=== PATIENT | male | born 1965 ===

== ENCOUNTER 2018-12-14 20:27 | Inpatient (IN) | payer SELFPAY ==
--- NOTE | 2018-12-14 21:30 | C.PDOC ---
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 Patient states today he awoke with massive swelling of the right arm. He arrived to the ER with a fever of 101. Patient reports having some mild cold symptoms but otherwise nothing significant and no other complaints. Time Seen by Provider: 12/14/18 21:22 Chief Complaint (Nursing): Abnormal Skin Integrity History Per: Patient History/Exam Limitations: no limitations Onset/Duration Of Symptoms: Days Current Symptoms Are (Timing): Worse Location Of Injury: Left: Forearm Quality Of Symptoms: Swollen, Other (Erythema) Recent travel outside of the [place]: No Past Medical History Reviewed: Historical Data, Nursing Documentation, Vital Signs Vital Signs: Last Vital Signs Temp 101 F H 12/14/18 20:47 Pulse 100 H 12/14/18 20:35 Resp 20 12/14/18 20:35 BP 131/72 12/14/18 20:35 Pulse Ox 92 L 12/14/18 20:35 Family History: States: No Known Family Hx - Social History Hx Alcohol Use: No Hx Substance Use: Yes - Immunization History Hx Tetanus Toxoid Vaccination: No Hx Influenza Vaccination: No Hx Pneumococcal Vaccination: No Review Of Systems Constitutional: Positive for: Fever. Negative for: Chills Cardiovascular: Negative for: Chest Pain, Palpitations Respiratory: Negative for: Cough, Shortness of Breath Gastrointestinal: Negative for: Nausea, Vomiting Skin: Positive for: Other (Left arm swelling and erythema) Neurological: Negative for: Weakness, Numbness Physical Exam - Physical Exam Appears: Non-toxic Skin: Warm, Dry Head: Atraumatic, Normacephalic Eye(s): bilateral: Normal Inspection Oral Mucosa: Moist Chest: Symmetrical, No Tenderness Cardiovascular: Rhythm Regular Respiratory: Normal Breath Sounds, No Rales, No Rhonchi, No Wheezing Gastrointestinal/Abdominal: Soft, No Tenderness Extremity: Normal ROM (x4), Capillary Refill (<2 seconds), Other (Swelling and erythema to left forearm from antecubital fossa to wrist with 2 large loculated abscess) Pulses: Left Radial: Normal, Right Radial: Normal Neurological/Psych: Oriented x3, Normal Speech ED Course And Treatment - Laboratory Results Result Diagrams: 12/14/18 22:10 12/14/18 22:10 Lab Interpretation: Abnormal (WBC 15.1) O2 Sat by Pulse Oximetry: 92 (Room air) Progress Note: Blood work and urinalysis ordered. Tylenol administered. - Physician Consult Information Outcome Of Conversation: Patient to be admitted for I&D of abscess and treatment with IV antibiotics. Disposition - Disposition Disposition: HOSPITALIZED Disposition Time: 23:25 Condition: STABLE - POA Present On Arrival: None - Clinical Impression Clinical Impression: Cutaneous abscess of right upper extremity - Scribe Statement The provider has reviewed the documentation as recorded by the Scribnani Ty All medical record entries made by the Pepeibnani were at my direction and personally dictated by me. I have reviewed the chart and agree that the record accurately reflects my personal performance of the history, physical exam, medical decision making, and the department course for this patient. I have also personally directed, reviewed, and agree with the discharge instructions and disposition.
[2018-12-14 22:16] LABS: BASO # 0.2 K/uL (0.0-0.2); BASO % 1.1 % (0.0-2.0); EOS % 0.2 % (0.0-4.0); HEMOGLOBIN 10.7 g/dL (12.0-18.0); LYMPH # 0.7 K/uL (1.0-4.3); LYMPH % 4.7 % (20.0-40.0); MEAN CELL VOLUME 85.8 fL (80.0-94.0); MEAN CORPUSCULAR HEMOGLOBIN 28.4 pg (27.0-31.0); MEAN CORPUSCULAR HGB CONC 33.1 g/dL (33.0-37.0); MEAN PLATELET VOLUME 7.2 fL (7.2-11.7); MONO # 0.8 K/uL (0.0-0.8); MONO % 5.2 % (0.0-10.0); NEUT # 13.4 K/uL (1.8-7.0); NEUT % 88.8 % (50.0-75.0); PLATELET COUNT 359 K/uL (130-400); RBC 3.76 Mil/uL (4.40-5.90); RED CELL DISTRIBUTION WIDTH 14.2 % (11.5-14.5); WHITE BLOOD COUNT 15.1 K/uL (4.8-10.8)
[2018-12-14 22:18] LABS: URINE BILIRUBIN 1+ (NEGATIVE); URINE BLOOD 1+ (NEGATIVE); URINE CLARITY Clear (Clear); URINE COLOR Amber (YELLOW); URINE GLUCOSE (UA) NORMAL (Normal); URINE LEUKOCYTE ESTERASE NEG Leu/uL (Negative); URINE PROTEIN 2+ mg/dL (NEGATIVE)
[2018-12-14 22:24] LABS: INR 1.6
[2018-12-14 22:27] LABS: ALBUMIN 3.7 g/dL (3.5-5.0); AST/SGOT 21 U/L (17-59); BLOOD UREA NITROGEN 12 mg/dL (9-20); CALCIUM 8.3 mg/dl (8.6-10.4); GFR NON-AFRICAN AMERICAN > 60
[2018-12-14 22:32] LABS: ALT/SGPT < 6 U/L (21-72)
[2018-12-14 22:38] LABS: BARBITURATES, UR NEGATIVE (NEGATIVE); BENZODIAZEPINES, UR NEGATIVE (NEGATIVE); PHENCYCLIDINE, UR NEGATIVE (NEGATIVE)
[2018-12-14 22:42] LABS: OPIATES, UR POSITIVE (NEGATIVE)
[2018-12-14 23:23] LABS: LYMPHOCYTE 3 % (20-40); MONOCYTE 1 % (0-10); NEUTROPHIL 96 % (50-75); PLATELET ESTIMATE NORMAL (NORMAL); TOTAL CELLS COUNTED 100
[2018-12-15] MEDS ORDERED: Lactated Ringer's 2,000 ML IV ONE (00:04)
[2018-12-15] MEDS ORDERED: Vancomycin 1 gm/NS 200 ml 1 GM/200 ML BAG IVPB STA (00:04)
[2018-12-15] MEDS ORDERED: HYDROmorphone 1 mg/ml ISec IVP PRN (00:04)
[2018-12-15] MEDS ORDERED: Phytonadione 10 mg/ml Inj (Adult) IV STA (00:08)
--- NOTE | 2018-12-15 00:13 | CP.PCM.HP ---
History of Present Illness - History of Present Illness History of Present Illness: HISTORY AND PHYSICAL, SURGERY. 53M IVDA patient presents with left arm pain and swelling that began couple of days ago. Patient states the pain is worse and swelling was increasing in the arm. He has a history of abscesses that have been drained in the operating room. He had admits to fevers. He denies any loss of sensation in the arm. Denies any motor dysfunction. PMH: IVDA PSH: I&Ds of abscesses Social: denies tobacco and alcohol abuse, admits to heroin abuse Allergies: NKDA Present on Admission - Present on Admission Any Indicators Present on Admission: No Past Patient History - Past Social History Smoking Status: Never Smoked - PSYCHIATRIC Hx Substance Use: Yes - SURGICAL HISTORY Hx Surgeries: No Meds Allergies/Adverse Reactions: Allergies Allergy/AdvReac Type Severity Reaction Status Date / Time No Known Allergies Allergy Verified 12/14/18 20:38 Physical Exam - Constitutional Appears: Non-toxic, No Acute Distress, Unkempt - Eye Exam Eye Exam: EOMI, PERRL - ENT Exam ENT Exam: Mucous Membranes Moist - Respiratory Exam Respiratory Exam: Clear to Auscultation Bilateral, NORMAL BREATHING PATTERN - Cardiovascular Exam Cardiovascular Exam: REGULAR RHYTHM, +S1, +S2 - GI/Abdominal Exam GI & Abdominal Exam: Soft. absent: Distended, Firm, Guarding, Rebound, Rigid, Tenderness - Extremities Exam Extremities exam: Positive for: pedal edema. Negative for: tenderness Additional comments: Left forearm swelling, erythema, induration, pitting edema, tenderness on palpation. multiple areas of fluctuance, no active drainage - Neurological Exam Neurological exam: Alert, Oriented x3 - Psychiatric Exam Psychiatric exam: Normal Affect, Normal Mood - Skin Skin Exam: Dry, Intact, Normal Color, Warm Results - Vital Signs Recent Vital Signs: Last Vital Signs Temp 101 F H 12/14/18 20:47 Pulse 100 H 12/14/18 20:35 Resp 20 12/14/18 20:35 BP 131/72 12/14/18 20:35 Pulse Ox 92 L 12/14/18 23:54 - Labs Result Diagrams: 12/14/18 22:10 12/14/18 22:10 Labs: Laboratory Results - last 24 hr 12/14/18 12/14/18 12/14/18 22:10 22:10 22:10 WBC 15.1 H RBC 3.76 L Hgb 10.7 L Hct 32.3 L MCV 85.8 MCH 28.4 MCHC 33.1 RDW 14.2 Plt Count 359 MPV 7.2 Neut % (Auto) 88.8 H Lymph % (Auto) 4.7 L [place] % (Auto) 5.2 Eos % (Auto) 0.2 Baso % (Auto) 1.1 Neut # (Auto) 13.4 H Lymph # (Auto) 0.7 L [place] # (Auto) 0.8 Eos # (Auto) 0.0 Baso # (Auto) 0.2 Neutrophils % (Manual) 96 H Lymphocytes % (Manual) 3 L Monocytes % (Manual) 1 Platelet Estimate Normal PT 17.0 H INR 1.6 APTT 23 Sodium Potassium Chloride Carbon Dioxide Anion Gap BUN Creatinine Est GFR ( Amer) Est GFR (Non-Af Amer) Random Glucose Calcium Total Bilirubin AST ALT Alkaline Phosphatase Total Protein Albumin Globulin Albumin/Globulin Ratio Urine Color [place] Urine Clarity Clear Urine pH 6.0 Ur Specific [place] 1.030 Urine Protein 2+ H Urine Glucose (UA) Normal Urine Ketones Negative Urine Blood 1+ H Urine Nitrate Negative Urine Bilirubin 1+ H Urine Urobilinogen 4.0 Ur Leukocyte Esterase Neg Urine WBC (Auto) 3 Urine RBC (Auto) 28 H Urine Opiates Screen Urine Methadone Screen Ur Barbiturates Screen Ur Phencyclidine Scrn Ur Amphetamines Screen U Benzodiazepines Scrn U Oth Cocaine Metabols U Cannabinoids Screen 12/14/18 12/14/18 22:10 22:10 WBC RBC Hgb Hct MCV MCH MCHC RDW Plt Count MPV Neut % (Auto) Lymph % (Auto) [place] % (Auto) Eos % (Auto) Baso % (Auto) Neut # (Auto) Lymph # (Auto) [place] # (Auto) Eos # (Auto) Baso # (Auto) Neutrophils % (Manual) Lymphocytes % (Manual) Monocytes % (Manual) Platelet Estimate PT INR APTT Sodium 132 Potassium 4.3 Chloride 95 L Carbon Dioxide 28 Anion Gap 13 BUN 12 Creatinine 0.7 L Est GFR ( Amer) > 60 Est GFR (Non-Af Amer) > 60 Random Glucose 121 H Calcium 8.3 L Total Bilirubin 0.6 AST 21 ALT < 6 L Alkaline Phosphatase 61 Total Protein 7.4 Albumin 3.7 Globulin 3.7 Albumin/Globulin Ratio 1.0 Urine Color Urine Clarity Urine pH Ur Specific [place] Urine Protein Urine Glucose (UA) Urine Ketones Urine Blood Urine Nitrate Urine Bilirubin Urine Urobilinogen Ur Leukocyte Esterase Urine WBC (Auto) Urine RBC (Auto) Urine Opiates Screen Positive H Urine Methadone Screen Negative Ur Barbiturates Screen Negative Ur Phencyclidine Scrn Negative Ur Amphetamines Screen Negative U Benzodiazepines Scrn Negative U Oth Cocaine Metabols Negative U Cannabinoids Screen Negative Assessment & Plan - Assessment and Plan (Free Text) Assessment: 53M presents with left forearm abscess Plan: NPO IVF Vit K Pain control Antibiotics Forearm x-ray Plan for OR in AM Discussed with Dr. Sun Saeed, PGY3
[2018-12-15] MEDS ORDERED: Piperacillin/Tazobact 3.375 gm 100 ML IVPB ONE (00:22)
[2018-12-15] MEDS: Piperacill/Tazo 3.375gm in Dex 3.375 GM/50 ML BAG IVPB SCH ×4 (00:35→19:09)
[2018-12-15] MEDS ORDERED: Vancomycin 1 GM 1 GM/250 ML BAG IVPB ONE (00:56)
[2018-12-15] MEDS ORDERED: Lactated Ringer's 1,000 ML ONE ×2 (01:47→03:01)
[2018-12-15] MEDS: Lactated Ringer's 1,000 ML IV SCH ×2 (03:55→07:09)
[2018-12-15 04:41] LABS: BASO % 0.5 % (0.0-2.0); EOS # 0.1 K/uL (0.0-0.7); EOS % 0.9 % (0.0-4.0); LYMPH # 1.2 K/uL (1.0-4.3); LYMPH % 11.9 % (20.0-40.0); MEAN CELL VOLUME 86.7 fL (80.0-94.0); MEAN CORPUSCULAR HEMOGLOBIN 28.7 pg (27.0-31.0); MEAN CORPUSCULAR HGB CONC 33.1 g/dL (33.0-37.0); MONO # 0.7 K/uL (0.0-0.8); MONO % 6.7 % (0.0-10.0); NEUT # 8.2 K/uL (1.8-7.0); RBC 3.84 Mil/uL (4.40-5.90); RED CELL DISTRIBUTION WIDTH 14.3 % (11.5-14.5); WHITE BLOOD COUNT 10.2 K/uL (4.8-10.8)
[2018-12-15 04:51] LABS: BLOOD UREA NITROGEN 10 mg/dL (9-20); CALCIUM 8.1 mg/dl (8.6-10.4); GFR NON-AFRICAN AMERICAN > 60
--- NOTE | 2018-12-15 09:01 | RAD ---
Date of service: 12/15/2018 PROCEDURE: Radiographs of the Left Forearm HISTORY: abscess COMPARISON: None available. TECHNIQUE: Frontal and lateral views obtained. FINDINGS: BONES: No fracture or destructive lesion.. No periosteal reaction or cortical destruction seen. JOINT SPACES: Unremarkable. OTHER FINDINGS: There is extensive subcutaneous reticulated edema and extensive bulging soft tissue prominence along the radial and volar aspect of the proximal forearm. Findings are compatible with the clinical history provided of an abscess. No radiopaque foreign body is seen here. No gross gas-forming cellulitis appreciated. IMPRESSION: Extensive soft tissue swelling with edema-findings compatible with a abscess-provided clinically. No periosteal reaction to suggest osteomyelitis noted. No gross osseous destruction appreciated . .
[2018-12-15] MEDS ORDERED: Midazolam 2 MG/2 ML VIAL ONE (10:55)
[2018-12-15] MEDS ORDERED: Propofol 10 mg/ml Inj (20 ML) ONE ×3 (10:55→11:18)
[2018-12-15] MEDS ORDERED: Bupivacaine-Epi 0.5%-1:200,000 PF Inj ONE (10:59)
[2018-12-15] MEDS ORDERED: Naloxone 0.4 mg/ml Inj (Adult) IVP PRN (11:38)
[2018-12-15] MEDS ORDERED: HYDROmorphone 0.5 mg/0.5 ml ISec IVP PRN (11:38)
--- NOTE | 2018-12-15 11:43 | PCM.SURG1 ---
Surgeon's Initial Post Op Note - Surgeon's Notes Surgeon: Dr. Garsia Silo Erector: Dr. Estrada PGY-3 Type of Anesthesia: General LMA Pre-Operative Diagnosis: L forearm abscess Operative Findings: See operative report Post-Operative Diagnosis: Same Operation Performed: Incision & Drainage of left forearm abscessess Specimen/Specimens Removed: none Estimated Blood Loss: EBL {In ML}: 50 Blood Products Given: N/A Drains Used: [place] Post-Op Condition: Good Date of Surgery/Procedure: 12/15/18 Time of Surgery/Procedure: 11:43
[2018-12-15 16:19] VITALS: RESP 20
[2018-12-15] MEDS ORDERED: SUBOXONE 8 MG SL SCH (18:00)
[2018-12-15] MEDS: Buprenorphine Hydrochloride 8 mg SL SCH (19:59)
[2018-12-16] MEDS: Piperacill/Tazo 3.375gm in Dex 3.375 GM/50 ML BAG IVPB SCH ×3 (00:15→18:06)
[2018-12-16 07:12] LABS: BASO # 0.1 K/uL (0.0-0.2); BASO % 0.5 % (0.0-2.0); EOS % 0.1 % (0.0-4.0); HEMOGLOBIN 11.5 g/dL (12.0-18.0); LYMPH % 9.1 % (20.0-40.0); MEAN CELL VOLUME 85.8 fL (80.0-94.0); MEAN CORPUSCULAR HEMOGLOBIN 28.6 pg (27.0-31.0); MEAN CORPUSCULAR HGB CONC 33.3 g/dL (33.0-37.0); MEAN PLATELET VOLUME 7.4 fL (7.2-11.7); MONO # 0.5 K/uL (0.0-0.8); MONO % 4.8 % (0.0-10.0); NEUT # 9.5 K/uL (1.8-7.0); NEUT % 85.5 % (50.0-75.0); RBC 4.02 Mil/uL (4.40-5.90); RED CELL DISTRIBUTION WIDTH 13.9 % (11.5-14.5); WHITE BLOOD COUNT 11.1 K/uL (4.8-10.8)
[2018-12-16 07:32] LABS: PLATELET COUNT 393 K/uL (130-400)
[2018-12-16 09:33] LABS: ANISOCYTOSIS SLIGHT; EOSINOPHIL 1 % (0-4); LYMPHOCYTE 10 % (20-40); MONOCYTE 6 % (0-10); NEUTROPHIL 83 % (50-75); PLATELET ESTIMATE NORMAL (NORMAL); POIKILOCYTOSIS SLIGHT; TOTAL CELLS COUNTED 100
[2018-12-16 09:34] LABS: HYPOCHROMIC SLIGHT
--- NOTE | 2018-12-16 09:48 | CP.PCM.PN ---
Subjective - Date & Time of Evaluation Date of Evaluation: 12/16/18 Time of Evaluation: 07:00 - Subjective Subjective: Surgery: Dr. Garsia Pt seen and examined. Overnight pt lost IV access and nurses were unable to establish new access. Pt denies any complaints this morning. Denies fevers/chills. Objective - Vital Signs/Intake and Output Vital Signs (last 24 hours): Temp Pulse Resp BP Pulse Ox 98.6 F 63 20 162/85 H 95 12/16/18 08:00 12/16/18 08:00 12/16/18 08:00 12/16/18 08:00 12/16/18 08:00 Intake and Output: 12/16/18 12/16/18 06:59 18:59 Intake Total 300 240 Balance 300 240 - Medications Medications: Current Medications Buprenorphine HCl (Subutex) 8 mg SL TID [facility] Last Admin: 12/15/18 19:59 Dose: 8 mg Influenza Virus Vaccine (Flucelvax Quad [id number] Syr) 60 mcg IM .ONCE ONE Stop: 12/17/18 10:01 Ketorolac Tromethamine (Toradol) 30 mg IVP Q6 PRN PRN Reason: Pain, severe (8-10) Last Admin: 12/15/18 13:17 Dose: 30 mg Pneumococcal Polyvalent Vaccine (Pneumovax 23 Vaccine) 0.5 ml IM .ONCE ONE Stop: 12/17/18 10:01 - Labs Labs: 12/16/18 07:00 12/15/18 04:35 PT 17.0 SECONDS (9.7-12.2) H 12/14/18 22:10 INR 1.6 12/14/18 22:10 APTT 23 SECONDS (21-34) 12/14/18 22:10 - Constitutional Appears: Well, No Acute Distress - Head Exam Head Exam: ATRAUMATIC, NORMOCEPHALIC - Eye Exam Eye Exam: Normal appearance - ENT Exam ENT Exam: Mucous Membranes Moist - Respiratory Exam Respiratory Exam: NORMAL BREATHING PATTERN - Cardiovascular Exam Cardiovascular Exam: RRR - Extremities Exam Additional comments: L arm with dressing; C/D/I - Neurological Exam Neurological Exam: Alert, Awake, Oriented x3 - Skin Skin Exam: Dry, Warm Assessment and Plan - Assessment and Plan (Free Text) Assessment: 53M with L forearm abscess secondary to IVDA; s/p I&D, POD#1 Plan: - will request midline with vascular nurse or insert central line for IV ABX - cont IV ABX - f/u Cx - change dressing tomorrow - d/w Dr. Sun Estrada
[2018-12-16] MEDS: Buprenorphine Hydrochloride 8 mg SL SCH ×3 (10:22→18:05)
--- NOTE | 2018-12-16 11:03 | PCM.PROC ---
Procedures Attestation:: I certify that I have explained the specified Operation(s) or Procedure(s), risks, benefits and reasonable alternatives to the Patient and/or other person responsible. The opportunity was given to ask questions and all questions answered - Central Line Placement Right Internal Jugular Aseptic technique was employed throughout the procedure: Hand Hygiene done prior to procedure, Full sterile barriers (mask, hair cover, sterile gown, sterile gloves), Full body sterile drape, Chloraprep Antiseptic: 30 second prep for IJ or SC sites CVP Time Out Performed: Yes Central Line Prep: Chlorhexidine-Alcohol Combination Local Anesthesia Used: Lidocaine 1% Amount of Anesthesia Used (mls): 10 Ultrasound Used for Placement: Yes Central Line Lumen Inserted: triple Central Line Length: 20 cm Post Procedure: Sutured in Place, Good Blood Return, All Ports Aspirated, Flushe d, Capped, Sterile Dressing Applied Secured by: Suture Post procedure dressing: Clear vapor permeable, Chlorhexidine disc (Biopatch) Post Procedure X-Ray: Yes Patient Tolerated Procedure: Well Immediate Complications: None
--- NOTE | 2018-12-16 11:37 | RAD ---
Date of service: 12/16/2018 HISTORY: central line placement COMPARISON: No prior. FINDINGS: The right IJV line terminates in the SVC. LUNGS: The lungs are well inflated. There is discoid atelectasis in the right mid lung. The left lung is clear. PLEURA: No pleural effusions or pneumothorax. CARDIOVASCULAR: The heart is normal in size. No aortic atherosclerotic calcifications present. OSSEOUS STRUCTURES: Within normal limits for the patient's age. VISUALIZED UPPER ABDOMEN: Normal. OTHER FINDINGS: None. IMPRESSION: Right IJV line terminates in the SVC. Discoid atelectasis in the right mid lung.
[2018-12-16] MEDS: Vancomycin 1 gm/NS 200 ml 1 GM/200 ML BAG IVPB SCH (13:35)
[2018-12-16] MEDS ORDERED: HYDROmorphone 0.5 mg/0.5 ml ISec IVP PRN (15:04)
[2018-12-17] MEDS: Piperacill/Tazo 3.375gm in Dex 3.375 GM/50 ML BAG IVPB SCH ×5 (00:25→23:52)
[2018-12-17] MEDS: Vancomycin 1 gm/NS 200 ml 1 GM/200 ML BAG IVPB SCH ×2 (01:03→14:18)
[2018-12-17 07:21] LABS: HEMOGLOBIN 11.9 g/dL (12.0-18.0); MEAN CELL VOLUME 85.8 fL (80.0-94.0); MEAN CORPUSCULAR HEMOGLOBIN 29.2 pg (27.0-31.0); MEAN CORPUSCULAR HGB CONC 34.1 g/dL (33.0-37.0); MEAN PLATELET VOLUME 7.3 fL (7.2-11.7); RBC 4.08 Mil/uL (4.40-5.90); RED CELL DISTRIBUTION WIDTH 14.1 % (11.5-14.5); WHITE BLOOD COUNT 8.6 K/uL (4.8-10.8)
[2018-12-17] MEDS ORDERED: Influenza Vaccine 60 mcg/0.5 mL SYR (4YR UP) IM ONE (10:00)
[2018-12-17] MEDS ORDERED: Pneumococcal 23-Valent Vaccine IM ONE (10:00)
[2018-12-17] MEDS: Buprenorphine Hydrochloride 8 mg SL SCH ×3 (10:18→18:49)
--- NOTE | 2018-12-17 20:03 | CP.PCM.PN ---
Subjective - Date & Time of Evaluation Date of Evaluation: 12/17/18 Time of Evaluation: 14:45 - Subjective Subjective: general surgery progress note for Dr. Garsia PAtient seen and examined at bedside. patient has no complaints at this time states dressing was changed by nursing earlier today d/t movement/coming off. Packing changed at bedside sita drains still in place. Patient tolerated well. no purulent fluid expressed from wound. iodine soaked kerlex used to repack medial opening without sita drain inside. patient otherwise states he has not numbness or motor weakness of the left arm and his pain is well controlled. he denies COLEMAN, CP SOB, abdominal pain stool changes and lower extremity pain/weakness. Objective - Vital Signs/Intake and Output Vital Signs (last 24 hours): Temp Pulse Resp BP Pulse Ox 98.1 F 52 L 20 122/72 94 L 12/17/18 16:00 12/17/18 16:00 12/17/18 16:00 12/17/18 16:00 12/17/18 16:00 Intake and Output: 12/17/18 12/18/18 18:59 06:59 Intake Total 550 Balance 550 - Medications Medications: Current Medications Buprenorphine HCl (Subutex) 8 mg SL TID [facility] Last Admin: 12/17/18 18:49 Dose: 8 mg Hydromorphone HCl (Dilaudid) 0.5 mg IVP Q6H PRN PRN Reason: Pain, severe (8-10) Stop: 12/18/18 15:05 Piperacillin Sod/Tazobactam Sod (Zosyn 3.375 Gm Iv Premix) 3.375 gm in 50 mls @ 100 mls/hr IVPB Q6H [facility]; Protocol Last Admin: 12/17/18 18:45 Dose: 100 mls/hr Vancomycin/Sodium Chloride (Vancomycin 1 Gm/Ns 200 Ml) 1 gm in 200 mls @ 13 3.333 mls/hr IVPB Q12H [facility]; Protocol Stop: 12/21/18 14:01 Last Admin: 12/17/18 14:18 Dose: 133.333 mls/hr Ketorolac Tromethamine (Toradol) 30 mg IVP Q6 PRN PRN Reason: Pain, severe (8-10) Last Admin: 12/15/18 13:17 Dose: 30 mg - Labs Labs: 12/17/18 07:02 02/07/19 04:35 PT 17.0 SECONDS (9.7-12.2) H 12/14/18 22:10 INR 1.6 12/14/18 22:10 APTT 23 SECONDS (21-34) 12/14/18 22:10 - Constitutional Appears: Well, Non-toxic, No Acute Distress - Head Exam Head Exam: ATRAUMATIC, NORMOCEPHALIC - Eye Exam Eye Exam: EOMI - ENT Exam ENT Exam: Mucous Membranes Moist - Respiratory Exam Respiratory Exam: NORMAL BREATHING PATTERN - Cardiovascular Exam Cardiovascular Exam: REGULAR RHYTHM - GI/Abdominal Exam GI & Abdominal Exam: Soft. absent: Guarding, Tenderness - Back Exam Additional comments: left arm with 3 cm incisions x3 on the anterior aspect of the forearm just distal to the antecubital fossa. lateral two incisions are held open with p enrose drain sutured in and medial incision was repacked with iodine soaked kerlex. incisions appear clean withourt surrounding erythema or induration - Neurological Exam Neurological Exam: Alert, Awake, Oriented x3 - Psychiatric Exam Psychiatric exam: Normal Affect, Normal Mood - Skin Skin Exam: Dry, Normal Color, Warm Additional comments: see extremity exam Assessment and Plan - Assessment and Plan (Free Text) Assessment: 53M with L forearm abscess secondary to IVDA; s/p I&D, POD#2 Plan: - cx growing MRSA, continue with IV abx - f/u culture - packing changed today, sita in place, will change packing again tomorrow -discussed with Dr. Sun Garay, PGY 1
[2018-12-18] MEDS: Vancomycin 1 gm/NS 200 ml 1 GM/200 ML BAG IVPB SCH (01:00)
[2018-12-18] MEDS: Piperacill/Tazo 3.375gm in Dex 3.375 GM/50 ML BAG IVPB SCH (05:53)
--- NOTE | 2018-12-18 08:05 | CP.PCM.PN ---
Subjective - Date & Time of Evaluation Date of Evaluation: 12/18/18 Time of Evaluation: 08:02 - Subjective Subjective: SURGERY NOTE FOR DR. PAIGE 53M seen and examined at bedside. Patient denies pain, denies fevers, he is tolerating diet. Objective - Vital Signs/Intake and Output Vital Signs (last 24 hours): Temp Pulse Resp BP Pulse Ox 97.9 F 57 L 20 151/94 H 94 L 12/18/18 00:00 12/18/18 00:00 12/18/18 00:00 12/18/18 00:00 12/18/18 00:00 Intake and Output: 12/18/18 12/18/18 06:59 18:59 Intake Total 840 Balance 840 - Medications Medications: Current Medications Buprenorphine HCl (Subutex) 8 mg SL TID [facility] Last Admin: 12/17/18 18:49 Dose: 8 mg Hydromorphone HCl (Dilaudid) 0.5 mg IVP Q6H PRN PRN Reason: Pain, severe (8-10) Stop: 12/18/18 15:05 Piperacillin Sod/Tazobactam Sod (Zosyn 3.375 Gm Iv Premix) 3.375 gm in 50 mls @ 100 mls/hr IVPB Q6H [facility]; Protocol Last Admin: 12/18/18 05:53 Dose: 100 mls/hr Vancomycin/Sodium Chloride (Vancomycin 1 Gm/Ns 200 Ml) 1 gm in 200 mls @ 133.333 mls/hr IVPB Q12H [facility]; Protocol Stop: 12/21/18 14:01 Last Admin: 12/18/18 01:00 Dose: 133.333 mls/hr Ketorolac Tromethamine (Toradol) 30 mg IVP Q6 PRN PRN Reason: Pain, severe (8-10) Last Admin: 12/15/18 13:17 Dose: 30 mg - Labs Labs: 12/17/18 07:02 12/15/18 04:35 PT 17.0 SECONDS (9.7-12.2) H 12/14/18 22:10 INR 1.6 12/14/18 22:10 APTT 23 SECONDS (21-34) 12/14/18 22:10 - Constitutional Appears: Non-toxic, No Acute Distress - Respiratory Exam Respiratory Exam: Clear to Ausculation Bilateral, NORMAL BREATHING PATTERN - Cardiovascular Exam Cardiovascular Exam: REGULAR RHYTHM, +S1, +S2 - GI/Abdominal Exam GI & Abdominal Exam: Soft. absent: Distended, Firm, Guarding, Rigid, Tenderness, Rebound - Extremities Exam Additional comments: left forearm I&D area has packing and sita in place - Neurological Exam Neurological Exam: Alert, Awake Assessment and Plan - Assessment and Plan (Free Text) Assessment: 53M s/p I&D of left forearm abscess Plan: - readjust antibiotics for sensitivities - PO medications - Likely discharge Further recs discuss with Dr. Sun Saeed, PGY3
[2018-12-18] MEDS: Buprenorphine Hydrochloride 8 mg SL SCH ×3 (10:46→18:10)
[2018-12-18] MEDS: Clindamycin 300 MG in Sodium Chloride 0.9% 50 ML IVPB SCH ×2 (13:28→18:10)
[2018-12-19] MEDS: Clindamycin 300 MG in Sodium Chloride 0.9% 50 ML IVPB SCH ×4 (00:23→17:52)
--- NOTE | 2018-12-19 08:12 | CP.PCM.PN ---
Subjective - Date & Time of Evaluation Date of Evaluation: 12/19/18 Time of Evaluation: 07:00 - Subjective Subjective: Surgery progress note for Dr. Garsia. Patient seen and examined at bedside. POD# 4 s/p I&D of L forearm abscess. Patient in no acute distress. No fevers overnight. Tolerating heart healthy diet. Denies pain to L forearm. Objective - Vital Signs/Intake and Output Vital Signs (last 24 hours): Temp Pulse Resp BP Pulse Ox 98.3 F 85 20 146/81 97 12/19/18 07:47 12/19/18 07:47 12/19/18 07:47 12/19/18 07:47 12/19/18 07:47 Intake and Output: 12/19/18 12/19/18 06:59 18:59 Intake Total 400 Balance 400 - Medications Medications: Current Medications Buprenorphine HCl (Subutex) 8 mg SL TID [facility] Last Admin: 12/18/18 18:10 Dose: 8 mg Clindamycin Phosphate 300 mg/ (Sodium Chloride) 52 mls @ 100 mls/hr IVPB Q6H [facility]; Protocol Last Admin: 12/19/18 06:09 Dose: 100 mls/hr - Labs Labs: 12/17/18 07:02 12/15/18 04:35 PT 17.0 SECONDS (9.7-12.2) H 12/14/18 22:10 INR 1.6 12/14/18 22:10 APTT 23 SECONDS (21-34) 12/14/18 22:10 - Constitutional Appears: Non-toxic, No Acute Distress - Head Exam Head Exam: ATRAUMATIC, NORMOCEPHALIC - Eye Exam Eye Exam: EOMI, Normal appearance, PERRL - ENT Exam ENT Exam: Mucous Membranes Moist - Neck Exam Neck Exam: Full ROM, Normal Inspection - Respiratory Exam Respiratory Exam: NORMAL BREATHING PATTERN. absent: Accessory Muscle Use - GI/Abdominal Exam GI & Abdominal Exam: Soft. absent: Tenderness - Extremities Exam Extremities Exam: Full ROM - Neurological Exam Neurological Exam: Alert, Awake, Oriented x3 - Psychiatric Exam Psychiatric exam: Normal Affect, Normal Mood - Skin Skin Exam: Normal Color Additional comments: L forearm incision with packing and sita drain in place. Edema to area has diminished. No erythema or warmth. Assessment and Plan - Assessment and Plan (Free Text) Assessment: 53M POD#4 s/p I&D of left forearm abscess Plan: -continue antibiotics -continue sita drain -continue packing and dressing changes -f/u case managment Further recs discuss with Dr. Sun Will, PGY1
[2018-12-19] MEDS: Buprenorphine Hydrochloride 8 mg SL SCH ×3 (09:43→17:50)
[2018-12-20] MEDS: Clindamycin 300 MG in Sodium Chloride 0.9% 50 ML IVPB SCH ×4 (00:47→18:19)
[2018-12-20 07:21] LABS: HEMOGLOBIN 13.8 g/dL (12.0-18.0); MEAN CELL VOLUME 85.8 fL (80.0-94.0); MEAN CORPUSCULAR HEMOGLOBIN 29.6 pg (27.0-31.0); MEAN CORPUSCULAR HGB CONC 34.5 g/dL (33.0-37.0); RBC 4.68 Mil/uL (4.40-5.90); RED CELL DISTRIBUTION WIDTH 14.4 % (11.5-14.5); WHITE BLOOD COUNT 7.5 K/uL (4.8-10.8)
[2018-12-20 07:36] LABS: BLOOD UREA NITROGEN 9 mg/dL (9-20); GFR NON-AFRICAN AMERICAN > 60
--- NOTE | 2018-12-20 08:18 | CP.PCM.PN ---
Subjective - Date & Time of Evaluation Date of Evaluation: 12/20/18 Time of Evaluation: 06:50 - Subjective Subjective: Progress note for Dr. Garsia. Patient is POD#5 s/p I&D of L forearm abscess. Patient seen and examined at bedside. Patient in no acute distress, resting comfortably in bed. No acute events overnight. Afebrile. Tolerating diet. Denies pain to L forearm. Denies fever, chills, nausea, vomiting, pain, weakness, lightheadedness and dizzines. Objective - Vital Signs/Intake and Output Vital Signs (last 24 hours): Temp Pulse Resp BP Pulse Ox 97.9 F 73 20 127/77 94 L 12/20/18 00:00 12/20/18 00:00 12/20/18 00:00 12/20/18 00:00 12/20/18 00:00 - Medications Medications: Current Medications Buprenorphine HCl (Subutex) 8 mg SL TID [facility] Last Admin: 12/19/18 17:50 Dose: 8 mg Clindamycin Phosphate 300 mg/ (Sodium Chloride) 52 mls @ 100 mls/hr IVPB Q6H [facility]; Protocol Last Admin: 12/20/18 06:06 Dose: 100 mls/hr - Labs Labs: 12/20/18 07:15 12/20/18 07:15 PT 17.0 SECONDS (9.7-12.2) H 12/14/18 22:10 INR 1.6 12/14/18 22:10 APTT 23 SECONDS (21-34) 12/14/18 22:10 - Additional Findings Additional findings: - Constitutional Appears: Non-toxic, No Acute Distress - Head Exam Head Exam: ATRAUMATIC, NORMOCEPHALIC - Eye Exam Eye Exam: EOMI, Normal appearance, PERRL - ENT Exam ENT Exam: Mucous Membranes Moist - Neck Exam Neck Exam: Full ROM, Right IJ TLC in place - Respiratory Exam Respiratory Exam: NORMAL BREATHING PATTERN. absent: Accessory Muscle Use - GI/Abdominal Exam GI & Abdominal Exam: Soft. absent: Tenderness - Extremities Exam Extremities Exam: Full ROM - Neurological Exam Neurological Exam: Alert, Awake, Oriented x3 - Psychiatric Exam Psychiatric exam: Normal Affect, Normal Mood - Skin Skin Exam: Normal Color Additional comments: L forearm incision with packing and sita drain in place. No erythema or warmth. Assessment and Plan - Assessment and Plan (Free Text) Assessment: 53M POD#5 s/p I&D of left forearm abscess -continue IV antibiotics -continue sita drain -continue packing and dressing changes Further recs discuss with Dr. Sun Will, PGY1
[2018-12-20] MEDS: Buprenorphine Hydrochloride 8 mg SL SCH ×3 (10:54→17:47)
[2018-12-21] MEDS: Clindamycin 300 MG in Sodium Chloride 0.9% 50 ML IVPB SCH ×4 (00:06→17:54)
[2018-12-21] MEDS: Buprenorphine Hydrochloride 8 mg SL SCH ×3 (10:08→17:55)
--- NOTE | 2018-12-21 12:22 | CP.PCM.PN ---
Subjective - Date & Time of Evaluation Date of Evaluation: 12/21/18 Time of Evaluation: 10:00 - Subjective Subjective: Surgery: Dr. Garsia Pt seen and examined. No acute overnight events. States he feels well and denies any complaints at this time. Denies fevers/chills. Objective - Vital Signs/Intake and Output Vital Signs (last 24 hours): Temp Pulse Resp BP Pulse Ox 97.5 F L 71 20 111/74 96 12/21/18 08:02 12/21/18 08:02 12/21/18 08:02 12/21/18 08:02 12/21/18 08:02 Intake and Output: 12/21/18 12/21/18 06:59 18:59 Intake Total 50 Balance 50 - Medications Medications: Current Medications Buprenorphine HCl (Subutex) 8 mg SL TID ALEXIS Last Admin: 12/21/18 10:08 Dose: Not Given Clindamycin Phosphate 300 mg/ (Sodium Chloride) 52 mls @ 100 mls/hr IVPB Q6H ALEXIS; Protocol Last Admin: 12/21/18 11:36 Dose: 100 mls/hr - Labs Labs: 12/20/18 07:15 12/20/18 07:15 PT 17.0 SECONDS (9.7-12.2) H 12/14/18 22:10 INR 1.6 12/14/18 22:10 APTT 23 SECONDS (21-34) 12/14/18 22:10 - Constitutional Appears: Well, No Acute Distress - Head Exam Head Exam: ATRAUMATIC, NORMOCEPHALIC - ENT Exam ENT Exam: Mucous Membranes Moist - Respiratory Exam Respiratory Exam: NORMAL BREATHING PATTERN - Cardiovascular Exam Cardiovascular Exam: RRR - GI/Abdominal Exam GI & Abdominal Exam: Soft - Extremities Exam Additional comments: left arm with sita drain in wound; no active drainage. Packing in medial incision changed. Erythema & induration improved compared to prior exam - Neurological Exam Neurological Exam: Alert, Awake, Oriented x3 - Skin Skin Exam: Dry, Warm Assessment and Plan - Assessment and Plan (Free Text) Assessment: 53M s/p I&D of Left forearm abscess; POD#6 Plan: - cont packing change - cont Clinda; sensitive to MRSA - DC planning - d/w Dr. Sun Estrada
[2018-12-22] MEDS: Clindamycin 300 MG in Sodium Chloride 0.9% 50 ML IVPB SCH ×2 (00:16→05:34)
--- NOTE | 2018-12-22 06:48 | OP ---
PROCEDURE DATE: 12/15/2018 TIME OF SURGERY: 11:43 a.m. SURGEON: Franky Garsia MD. EXERCISE MANAGER: Dr. Estrada, PGY-3 TYPE OF ANESTHESIA: General LMA. PREOPERATIVE DIAGNOSIS: Left forearm abscess. POSTOPERATIVE DIAGNOSIS: Left forearm abscess. OPERATION PERFORMED: Incision and drainage of left forearm abscesses. SPECIMEN REMOVED: None. ESTIMATED BLOOD LOSS: 50 mL. DRAINS USED: Ladi. DESCRIPTION OF PROCEDURE: An informed consent was obtained and the patient was brought to the operating room and placed on the operating table in supine position. The left arm was prepped and draped in sterile fashion. Three distinct abscesses were found and linear incisions were used over the most fluctuant areas on the left forearm; 20 to 30 mL of purulent fluid was expressed from the two lateral incisions. Cultures were obtained. The third medial incision also expressed about 5 to 7 mL of purulent fluid. Sharp dissection was used along with a Miranda clamp to break up any loculations. The two lateral incisions were found to be connected and a Ladi drain was left to keep the two incisions open and draining. All incisions were copiously irrigated and half-inch iodoform packing was used in the medial incision. A sterile dressing was applied and the patient was taken to PACU in stable condition. All counts were correct at the end of the procedure. The patient tolerated the procedure well. Courtney Estrada DO Franky Garsia MD [email or web address]
[2018-12-22 07:59] VITALS: BP 125/82; PULSE 105; TEMP 97.5; O2SAT 98
--- NOTE | 2018-12-22 08:45 | CP.PCM.DIS ---
Provider - Provider Date of Admission: 12/14/18 23:53 Attending physician: Franky Garsia MD Time Spent in preparation of Discharge (in minutes): 30 Hospital Course - Lab Results Lab Results: Micro Results 12/14/18 22:10 Blood Blood Culture - Final NO GROWTH AFTER 5 DAYS 12/14/18 22:10 Blood Gram Stain - Final TEST NOT PERFORMED 12/14/18 22:10 Blood Blood Culture - Final NO GROWTH AFTER 5 DAYS 12/14/18 22:10 Blood Gram Stain - Final TEST NOT PERFORMED 12/15/18 14:01 Abscess - Arm-Left Gram Stain - Final 12/15/18 14:01 Abscess - Arm-Left Wound Culture - Final Methicillin Resistant S Aureus Most Recent Lab Values WBC 7.5 K/uL (4.8-10.8) 12/20/18 07:15 RBC 4.68 Mil/uL (4.40-5.90) 12/20/18 07:15 Hgb 13.8 g/dL (12.0-18.0) 12/20/18 07:15 Hct 40.1 % (35.0-51.0) 12/20/18 07:15 MCV 85.8 fL (80.0-94.0) 12/20/18 07:15 MCH 29.6 pg (27.0-31.0) 12/20/18 07:15 MCHC 34.5 g/dL (33.0-37.0) 12/20/18 07:15 RDW 14.4 % (11.5-14.5) 12/20/18 07:15 Plt Count 457 K/uL (130-400) H 12/20/18 07:15 MPV 7.0 fL (7.2-11.7) L 12/20/18 07:15 Neut % (Auto) 85.5 % (50.0-75.0) H 12/16/18 07:00 Lymph % (Auto) 9.1 % (20.0-40.0) L 12/16/18 07:00 [place] % (Auto) 4.8 % (0.0-10.0) 12/16/18 07:00 Eos % (Auto) 0.1 % (0.0-4.0) 12/16/18 07:00 Baso % (Auto) 0.5 % (0.0-2.0) 12/16/18 07:00 Neut # (Auto) 9.5 K/uL (1.8-7.0) H 12/16/18 07:00 Lymph # (Auto) 1.0 K/uL (1.0-4.3) 12/16/18 07:00 [place] # (Auto) 0.5 K/uL (0.0-0.8) 12/16/18 07:00 Eos # (Auto) 0.0 K/uL (0.0-0.7) 12/16/18 07:00 Baso # (Auto) 0.1 K/uL (0.0-0.2) 12/16/18 07:00 Neutrophils % (Manual) 83 % (50-75) H 12/16/18 07:00 Lymphocytes % (Manual) 10 % (20-40) L 12/16/18 07:00 Monocytes % (Manual) 6 % (0-10) 12/16/18 07:00 Eosinophils % (Manual) 1 % (0-4) 12/16/18 07:00 Platelet Estimate Normal (NORMAL) 12/16/18 07:00 Hypochromasia (manual) Slight 12/16/18 07:00 Poikilocytosis (manual Slight 12/16/18 07:00 Anisocytosis (manual) Slight 12/16/18 07:00 PT 17.0 SECONDS (9.7-12.2) H 12/14/18 22:10 INR 1.6 12/14/18 22:10 APTT 23 SECONDS (21-34) 12/14/18 22:10 Sodium 137 mmol/L (132-148) 12/20/18 07:15 Potassium 3.7 mmol/L (3.6-5.2) 12/20/18 07:15 Chloride 105 mmol/L (98-107) 12/20/18 07:15 Carbon Dioxide 27 mmol/L (22-30) 12/20/18 07:15 Anion Gap 9 (10-20) L 12/20/18 07:15 BUN 9 mg/dL (9-20) 12/20/18 07:15 Creatinine 0.7 mg/dL (0.8-1.5) L 12/20/18 07:15 Est GFR ( Amer) > 60 12/20/18 07:15 Est GFR (Non-Af Amer) > 60 12/20/18 07:15 Random Glucose 87 mg/dL (75-110) 12/20/18 07:15 Calcium 9.0 mg/dl (8.6-10.4) 12/20/18 07:15 Total Bilirubin 0.6 mg/dL (0.2-1.3) 12/14/18 22:10 AST 21 U/L (17-59) 12/14/18 22:10 ALT < 6 U/L (21-72) L 12/14/18 22:10 Alkaline Phosphatase 61 U/L (38-126) 12/14/18 22:10 Total Protein 7.4 g/dL (6.3-8.3) 12/14/18 22:10 Albumin 3.7 g/dL (3.5-5.0) 12/14/18 22:10 Globulin 3.7 gm/dL (2.2-3.9) 12/14/18 22:10 Albumin/Globulin Ratio 1.0 (1.0-2.1) 12/14/18 22:10 Urine Color [place] (YELLOW) 12/14/18 22:10 Urine Clarity Clear (Clear) 12/14/18 22:10 Urine pH 6.0 (5.0-8.0) 12/14/18 22:10 Ur Specific [place] 1.030 (1.003-1.030) 12/14/18 22:10 Urine Protein 2+ mg/dL (NEGATIVE) H 12/14/18 22:10 Urine Glucose (UA) Normal mg/dL (Normal) 12/14/18 22:10 Urine Ketones Negative mg/dL (NEGATIVE) 12/14/18 22:10 Urine Blood 1+ (NEGATIVE) H 12/14/18 22:10 Urine Nitrate Negative (NEGATIVE) 12/14/18 22:10 Urine Bilirubin 1+ (NEGATIVE) H 12/14/18 22:10 Urine Urobilinogen 4.0 mg/dL (0.2-1.0) 12/14/18 22:10 Ur Leukocyte Esterase Neg [place]/uL (Negative) 12/14/18 22:10 Urine WBC (Auto) 3 /hpf (0-5) 12/14/18 22:10 Urine RBC (Auto) 28 /hpf (0-3) H 12/14/18 22:10 Urine Opiates Screen Positive (NEGATIVE) H 12/14/18 22:10 Urine Methadone Screen Negative (NEGATIVE) 12/14/18 22:10 Ur Barbiturates Screen Negative (NEGATIVE) 12/14/18 22:10 Ur Phencyclidine Scrn Negative (NEGATIVE) 12/14/18 22:10 Ur Amphetamines Screen Negative (NEGATIVE) 12/14/18 22:10 U Benzodiazepines Scrn Negative (NEGATIVE) 12/14/18 22:10 U Oth Cocaine Metabols Negative (NEGATIVE) 12/14/18 22:10 U Cannabinoids Screen Negative (NEGATIVE) 12/14/18 22:10 - Hospital Course Hospital Course: 53M with hx of IVDA who presented to with Left forearm abscess. Pt was taken to OR for I&D 12/15/18 and found to have multiple abscesses spanning the left forearm. 3 seperate incisions were made to drain the abscesses, 2 of which were found to be connected and a sita drain was left in place. The third incision was packed with iodoform. Pt was kept on IV ABX and cultures grew MRSA which was sensitive to Clindamycin that the pt was receiving. Pt now doing well, sita drain/packing removed. Pt instructed to f/u with Dr. Garsia in 1 week. DC on PO Clinda. Discharge Exam - Head Exam Head Exam: ATRAUMATIC, NORMOCEPHALIC - Eye Exam Eye Exam: Normal appearance - ENT Exam ENT Exam: Mucous Membranes Moist - Respiratory Exam Respiratory Exam: NORMAL BREATHING PATTERN - Cardiovascular Exam Cardiovascular Exam: RRR - GI/Abdominal Exam GI & Abdominal Exam: Soft - Extremities Exam Additional comments: Left forearm with 3 I&D incisions, surrounding erythema & induration improved, no active drainage, sita removed - Neurological Exam Neurological exam: Alert, Oriented x3 - Skin Skin Exam: Dry, Warm Discharge Plan - Discharge Medications Prescriptions: Clindamycin [Cleocin] 300 mg PO Q6H 7 Days cap - Follow Up Plan Condition: STABLE Disposition: HOME/ ROUTINE Instructions: Abscess (GEN), Abscess Incision and Drainage (DC)
[2018-12-22] MEDS: Buprenorphine Hydrochloride 8 mg SL SCH (10:47)
== END 2018-12-22 12:03 | disposition home or self-care (01) | DRG 603 ==
LOC: C.ER 20:27 → C.9E 23:53 → C.6T 12-15 01:52 → C.9E 12-15 02:00 → C.3T 12-15 03:55
PROVIDERS: ADMIT Surgery; ATTEND Surgery
PROC: 0X990ZZ Drainage of Left Upper Arm, Open Approach (ICD-10-PCS; principal; 2018-12-15 11:00)
DX: L02.414 Cutaneous abscess of left upper limb (principal); L02.413 Cutaneous abscess of right upper limb; F11.10 Opioid abuse, uncomplicated; B95.62 Methicillin resistant Staphylococcus aureus infection as the cause of diseases classified elsewhere; J00 Acute nasopharyngitis [common cold]